=== PATIENT | male | born 1965 | race Caucasian/White ===

== ENCOUNTER 2016-09-01 10:17 | Emergency (ER) | payer BC ==
[2016-09-01] MEDS ORDERED: Nitroglycerin 0.4 MG TAB (25 Tab Bottle) ONE ×2 (10:43→12:10)
[2016-09-01 10:45] LABS: #Basophils 0.2 thou/uL (0.0-0.2); #Eosinphils 0.1 thou/uL (0.0-0.7); #Lymphocytes 1.7 thou/uL (1.20-3.40); #Monocytes 0.7 thou/uL (0.11-0.59); #Neutrophils 5.1 thou/uL (1.40-6.50); %Eosinophils 1.5 % (0.0-10.0); %Lymphocytes 21.8 % (21.0-51.0); %Monocytes 8.9 % (0.0-10.0); %Neutrophils 65.9 % (42.0-75.0); Hemoglobin 14.8 g/dL (14.0-18.0); Mean Corpuscular Hemoglobin 33.8 pg (27.0-31.0); Mean Corpuscular Volume 99.6 fl (80.0-94.0); Mean Platelet Volume 6.3 fL (7.4-10.4); Platelet Count 224 thou/uL (130-400); RBC Distribution Width 13.8 % (11.5-14.5); Red Blood Cell (RBC) Count 4.38 mill/uL (4.70-6.10); White Blood Cell (WBC) Count 7.7 thou/uL (4.8-10.8)
[2016-09-01 10:50] LABS: INR-International Normal Ratio 3.3; Prothrombin Time 35.2 SEC (12.0-14.7)
[2016-09-01 10:57] LABS: ALT (SGPT) 16 U/L (0-55); AST (SGOT) 56 U/L (5-34); Albumin 4.4 g/dL (3.5-5.0); Alkaline Phosphatase 71 U/L (40-150); Anion Gap 13 mmol/L (10-20); BUN (Urea Nitrogen) 12 mg/dL (8.4-25.7); Bilirubin, Total 0.5 mg/dL (0.2-1.2); CK (CPK) 79 U/L (30-200); Calc. Creatinine Clearance 0 mL/min (70-130); Calcium 9.2 mg/dL (7.8-10.44); Carbon Dioxide 27 mmol/L (22-29); Chloride 104 mmol/L (98-107); Estimated GFR-MDRD Greater than 90; Globulin 3.1 g/dL (2.4-3.5); Glucose 97 mg/dL (70-105); Lipase 26 U/L (8-78); Potassium 4.2 mmol/L (3.5-5.1); Protein, Total 7.5 g/dL (6.0-8.3); Sodium 140 mmol/L (136-145)
[2016-09-01 10:58] LABS: D-Dimer Test Less than 0.27 *mcg/mL (0.27-0.43)
[2016-09-01 11:01] LABS: CKMB 0.6 ng/mL (0-6.6); Troponin I Less than 0.010 ng/mL (< 0.028)
--- NOTE | 2016-09-01 22:02 | RAD ---
PORTABLE CHEST: Date: 09-01-16 An AP portable film at 1042 is compared with a 07-17-15 study done at [facility]. FINDINGS: Mild cardiomegaly is the same as before. There are no congestive changes, pleural effusions, or foca l pulmonary infiltrates. The lungs are clear. The trachea is midline. IMPRESSION: Cardiomegaly with little change since last year. POS: HOME
== END 2016-09-01 11:37 | disposition home or self-care (01) ==
LOC: BURERS 10:17
DX: R07.9 Chest pain, unspecified (principal); I10 Essential (primary) hypertension; I48.91 Unspecified atrial fibrillation; F41.9 Anxiety disorder, unspecified; Z79.01 Long term (current) use of anticoagulants; Z79.899 Other long term (current) drug therapy
CPT/HCPCS: 36416; 71010; 80053; 82550; 82553; 83690; 83880; 84484; 85025; 85379; 85610; 93005; 94760